=== PATIENT | male | born 1955 | race Caucasian/White ===

== ENCOUNTER 2020-05-01 00:56 | Outpatient (CLI) | payer OTHER, SELFPAY ==
[2020-05-01 19:19] LABS: SARS-CoV-2 RNA PCR Negative
== END 2020-05-01 00:57 | disposition home or self-care (01) ==
LOC: ANHCOVIDDT 00:58
PROVIDERS: PCP Internal Medicine; Visit Provider Internal Medicine Gastroenterology
DX: Z01.812 Encounter for preprocedural laboratory examination (principal); Z20.828 Contact with and (suspected) exposure to other viral communicable diseases
CPT/HCPCS: 87635; C9803; U0003

== ENCOUNTER 2020-05-03 00:26 | Day surgery (SDC) | payer OTHER, SELFPAY ==
[2020-04-26 08:34] VITALS: BMI 26.0
[2020-05-03 08:16] VITALS: BP 151/96; PULSE 81; RESP 20; TEMP 36.1; O2SAT 96; BMI 26.6
--- NOTE | 2020-05-03 08:27 | WPDGICN ---
Assessment and Plan Assessment and plan (1) Screening for colon cancer: Code(s): Z12.11 - Encounter for screening for malignant neoplasm of colon Status: Acute Assessment and Plan: Patient appears to be at average risk for colon cancer. screening is advised. colonoscopy report will follow separately. GI Consult Note Consult date/time: 05/03/20 08:27 HPI: Demian Light is a 65 year old male seen in evaluation at the request of Dr Boogie Sparks, [facility]. Patient presents for neoplasia screening. He states his current weight appetite bowel movements normal. He denies abdominal pain. Family history is noncontributory. Patient reports a past history of low back pain, leg pain atherosclerotic heart disease. Elevated cholesterol. Review of Systems Review of Systems: All systems reviewed & are unremarkable except as noted in HPI and below PMFSH Past Medical History Medical History (Updated 05/03/20 @ 08:30 by Jhonny Wilde MD) Atherosclerosis of coronary artery Automatic implantable cardiac defibrillator in situ Bipolar 1 disorder Cardiomyopathy Chronic low back pain COPD (chronic obstructive pulmonary disease) Degeneration of intervertebral disc Depression History of prostate cancer Hyperlipidemia Hypertension Impaired glucose tolerance Screening for colon cancer Screening for prostate cancer Family History Family History Mother Family history of peptic ulcer Family history of atrial fibrillation Family history of congestive heart failure Father Malignant neoplasm of prostate Patient's father is Other Depression Family history of arthritis Family history of heart disease in male family member before age 55 Social History Social History Smoking packs per day: 0.5 Smoking cigarettes per day: 10.0 Years smoked: 40 Smoking pack-years: 20.00 Smoking status: Current every day smoker Tobacco type: cigarettes Alcohol intake: never Substance use: never Substance use type: does not use Living arrangements: with family Spiritual care concerns: No Meds Home Medications and Allergies Home Medications Medication Instructions Recorded Confirmed Type aspirin 81 mg tablet,delayed 81 mg PO DAILY 05/19/19 04/26/20 History release duloxetine 30 mg capsule,delayed 30 mg PO DAILY cap 05/19/19 04/26/20 History release albuterol sulfate 90 mcg/actuation 2 puff INHALATION Q6-8H PRN #18 gm 10/02/19 04/26/20 Rx aerosol inhaler lurasidone 40 mg tablet 40 mg PO DAILY 02/01/20 04/26/20 History omega-3 fatty acids 1,000 mg 1,000 mg PO DAILY #90 cap 02/01/20 04/26/20 Rx capsule metoprolol succinate 25 mg 25 mg PO DAILY #90 tablet 03/04/20 04/26/20 Rx tablet,extended release 24 hr hydrocodone 7.5 mg-acetaminophen 1 tablet PO TID PRN #90 tablet 04/22/20 04/26/20 Rx 325 mg tablet duloxetine 60 mg PO HS 04/26/20 04/26/20 History ezetimibe 10 mg PO HS 04/26/20 04/26/20 History fosinopril 10 mg PO DAILY 04/26/20 04/26/20 History gabapentin 300 mg PO BID 04/26/20 04/26/20 History sotalol 60 mg PO BID 04/26/20 04/26/20 History trazodone 100 mg PO HS 04/26/20 04/26/20 History Allergies Allergy/AdvReac Type Severity Reaction Status Date / Time atorvastatin Allergy Unknown Muscle Pain Verified 05/03/20 08:12 colesevelam Allergy Unknown Nausea Verified 05/03/20 08:12 fenofibrate Allergy Unknown Muscle Pain Verified 05/03/20 08:12 simvastatin Allergy Unknown Muscle Pain Verified 05/03/20 08:12 Vital Signs Vital Signs - 24 hr 05/03/20 08:16 Temperature 97 F L Pulse Rate 81 Respiratory Rate 20 Blood Pressure 151/96 H Pulse Oximetry 96 Exam Narrative: Exam Narrative: Physical exam reveals patient to be alert. Vital signs stable. HEENT exam unremarkable. Lungs are clear to auscultation and percussion. Heart is with
--- NOTE | 2020-05-03 08:27 | WPDANESEPPF ---
Anes - Initial Pre Proc Eval Procedure: Operation Date: 05/03/20 09:00 Proposed Procedures p Screening Colonoscopy - Jhonny Wilde MD Date/Time: 05/03/20 08:27 Surgeon: Jhonny Wilde MD Pre Op Diagnosis: Neoplasm Screening Patient Data Age: 65 Gender: M Height: 5 ft 9 in Weight: 82 kg Last Vital Signs Temp 97 F L 05/03/20 08:16 Pulse 81 05/03/20 08:16 Resp 20 05/03/20 08:16 BP 151/96 H 05/03/20 08:16 Pulse Ox 96 05/03/20 08:16 Allergies Allergy/AdvReac Type Severity Reaction Status Date / Time atorvastatin Allergy Unknown Muscle Pain Verified 05/03/20 08:12 colesevelam Allergy Unknown Nausea Verified 05/03/20 08:12 fenofibrate Allergy Unknown Muscle Pain Verified 05/03/20 08:12 simvastatin Allergy Unknown Muscle Pain Verified 05/03/20 08:12 Home Medications Medication Instructions Recorded Confirmed Type aspirin 81 mg tablet,delayed 81 mg PO DAILY 05/19/19 04/26/20 History release duloxetine 30 mg capsule,delayed 30 mg PO DAILY cap 05/19/19 04/26/20 History release albuterol sulfate 90 mcg/actuation 2 puff INHALATION Q6-8H PRN #18 gm 10/02/19 04/26/20 Rx aerosol inhaler lurasidone 40 mg tablet 40 mg PO DAILY 02/01/20 04/26/20 History omega-3 fatty acids 1,000 mg 1,000 mg PO DAILY #90 cap 02/01/20 04/26/20 Rx capsule metoprolol succinate 25 mg 25 mg PO DAILY #90 tablet 03/04/20 04/26/20 Rx tablet,extended release 24 hr hydrocodone 7.5 mg-acetaminophen 1 tablet PO TID PRN #90 tablet 04/22/20 04/26/20 Rx 325 mg tablet duloxetine 60 mg PO HS 04/26/20 04/26/20 History ezetimibe 10 mg PO HS 04/26/20 04/26/20 History fosinopril 10 mg PO DAILY 04/26/20 04/26/20 History gabapentin 300 mg PO BID 04/26/20 04/26/20 History sotalol 60 mg PO BID 04/26/20 04/26/20 History trazodone 100 mg PO HS 04/26/20 04/26/20 History Patient hx anesthesia problems: none Family hx anesthesia problems: none PMFSH Past Medical History Medical History Atherosclerosis of coronary artery Automatic implantable cardiac defibrillator in situ Bipolar 1 disorder Cardiomyopathy Chronic low back pain COPD (chronic obstructive pulmonary disease) Degeneration of intervertebral disc Depression History of prostate cancer Hyperlipidemia Hypertension Impaired glucose tolerance Screening for colon cancer Screening for prostate cancer Family History Family History Mother Family history of peptic ulcer Family history of atrial fibrillation Family history of congestive heart failure Father Malignant neoplasm of prostate Patient's father is Other Depression Family history of arthritis Family history of heart disease in male family member before age 55 Social History Social History Smoking packs per day: 0.5 Smoking cigarettes per day: 10.0 Years smoked: 40 Smoking pack-years: 20.00 Smoking status: Current every day smoker Tobacco type: cigarettes Alcohol intake: never Substance use: never Substance use type: does not use Living arrangements: with family Spiritual care concerns: No Anes - Eval Final PreProcedure Day of Procedure 05/03/20 08:27 Patient weight: normal Heart: regular rate and rhythm Lungs: clear to auscultation Airway: Mallampati scale class II Neurological: alert and oriented Last oral intake: >/= 8 hours ASA classification: III Emergent: no Anesthetic plan: proceed Anesthesia type and monitoring: general GIVS and standard monitoring Informed Consent: The patient's anesthetic plan and its attendant risks and benefits were discussed with the patient/family/POA. Questions were solicited and answers provided to the satisfaction of the patient/family/POA.
[2020-05-03] MEDS: LACTATED RINGERS 1,000 ML 150 ML IV CONT (08:32)
[2020-05-03 09:27] VITALS: BP 97/63; PULSE 70; RESP 16; O2SAT 97
[2020-05-03 09:35] VITALS: BP 97/61; PULSE 61; RESP 16; O2SAT 98
[2020-05-03 09:45] VITALS: BP 118/69; PULSE 60; RESP 16; O2SAT 98
== END 2020-05-03 09:54 | disposition home or self-care (01) ==
PROVIDERS: PCP Internal Medicine; Visit Provider Internal Medicine Gastroenterology
PROC: 0DJD8ZZ Inspection of Lower Intestinal Tract, Via Natural or Artificial Opening Endoscopic (ICD-10-PCS; CPT 45378; principal; 2020-05-03 09:00)
DX: Z12.11 Encounter for screening for malignant neoplasm of colon (principal); K64.8 Other hemorrhoids; K57.30 Diverticulosis of large intestine without perforation or abscess without bleeding; I25.10 Atherosclerotic heart disease of native coronary artery without angina pectoris; I42.9 Cardiomyopathy, unspecified; J44.9 Chronic obstructive pulmonary disease, unspecified; I10 Essential (primary) hypertension; E78.5 Hyperlipidemia, unspecified; Z95.810 Presence of automatic (implantable) cardiac defibrillator; Z85.46 Personal history of malignant neoplasm of prostate; F17.210 Nicotine dependence, cigarettes, uncomplicated; Z79.82 Long term (current) use of aspirin
CPT/HCPCS: G0121; J2001; J2704; J7120

== ENCOUNTER 2020-09-05 09:16 | Outpatient (CLI) | payer OTHER, SELFPAY ==
--- NOTE | ~2020-09-05 | CT_ITS ---
EXAMINATION: CT lung screening DATE: 09/05/2020 11:09 INDICATION: Tobacco use TECHNIQUE: Computed tomography (CT) of the chest was performed without intravenous contrast. The dose -length product was 100.38 mGy-cm. Automated exposure control and iterative reconstruction technique were employed. COMPARISON: CT dated 10/06/2004 FINDINGS: There are multiple bilateral calcified granulomas of the lung parenchyma, mediastinum and h oniel. There is emphysema. There is a 12 mm partially calcified mass right lower lobe, corresponding to focal consolidation/masslike density seen on prior CT dated 2004, consistent with chronic granulomat ous disease. Mild thoracic spondylosis. No acute osseous abnormality. IMPRESSION: 1. Lung-RADS category 2: Benign appearance or behavior. Continue annual screening with noncontrast lo w-dose chest CT in 12 months. Reviewed, dictated and finalized at location [facility] IMPRESSION: 1. Lung-RADS category 2: Benign appearance or behavior. Continue annual screeni ng with noncontrast low-dose chest CT in 12 months.
--- NOTE | 2020-09-05 16:30 | WPDPFTINT ---
PFT Interpretation This is a pulmonary function test with pre and post-bronchodilator spirometry, plethysmography and diffusing capacity. The test was performed and results interpreted in accordance with the 2019 and 2005 ATS/ERS Task Force guidelines respectively using the [employer] reference equations. Findings: Spirometry: There is decreased maximal expiratory airflow at all lung volumes. The contour of the inspiratory flow tracing is normal. The pre bronchodilator FVC is 4.11 L, 91% predicted. The pre bronchodilator FEV1 is 1.78 L, 58% predicted. The FEV1: FVC ratio is 43%. The post bronchodilator FVC is 4.36 L, representing a 6% increase. The post bronchodilator FEV1 is 1.82 L, representing a 2% increase. Plethysmography: The total lung capacity is 6.79 L, 102% predicted. The functional residual capacity is 3.92 L, 104% predicted. The residual volume is 2.68 L, 106% predicted. Diffusing capacity the absolute diffusing capacity is 12.5, 56% predicted. The diffusing capacity corrected for alveolar volume is 2.44, 66% predicted. Impression: There is a moderately severe obstructive abnormality without significant improvement after inhaling a single dose of albuterol. The lung volumes are normal. The absolute diffusing capacity is mildly decreased but normalizes when corrected for alveolar volume. There are no prior studies for comparison
== END 2020-09-05 09:17 | disposition home or self-care (01) ==
PROVIDERS: PCP Internal Medicine; Visit Provider Internal Medicine
DX: J44.9 Chronic obstructive pulmonary disease, unspecified (principal); Z72.0 Tobacco use; R94.2 Abnormal results of pulmonary function studies
CPT/HCPCS: 71271; 94060; 94726; 94729